=== PATIENT | male | born 1945 | race Caucasian/White ===

== ENCOUNTER → 2016-06-19 | Outpatient (CLI) | payer MEDICARE ==
[2016-06-19 11:44] LABS: ALANINE AMINOTRANSFERASE 27 U/L (21-72); ALBUMIN 4.3 g/dL (3.5-5.0); ALKALINE PHOSPHATASE 64 U/L (38-126); ASPARTATE AMINO TRANSFERASE 24 U/L (17-59); BILIRUBIN,TOTAL 1.9 mg/dL (0.2-1.3); CHOLESTEROL 141.11 mg/dL (0-200); Direct HDL 39 mg/dL (>40); TOTAL PROTEIN 6.5 g/dL (6.3-8.2); TRIGLYCERIDES 96 mg/dL (<150)
[2016-06-19 11:55] LABS: DIRECT LDL 89 mg/dL (<100)
== END ==
LOC: OD 08:59
PROVIDERS: ATTEND Specialist
DX: E78.4 Other hyperlipidemia (principal); I10 Essential (primary) hypertension; I34.0 Nonrheumatic mitral (valve) insufficiency; I36.1 Nonrheumatic tricuspid (valve) insufficiency; R01.1 Cardiac murmur, unspecified; E55.9 Vitamin D deficiency, unspecified; Z79.899 Other long term (current) drug therapy
CPT/HCPCS: 36415; 80061; 80076

== ENCOUNTER → 2016-12-22 | Outpatient (CLI) | payer MEDICARE ==
[2016-12-22 09:47] LABS: ALANINE AMINOTRANSFERASE 30 U/L (21-72); ALBUMIN 3.9 g/dL (3.5-5.0); ALKALINE PHOSPHATASE 71 U/L (38-126); ASPARTATE AMINO TRANSFERASE 25 U/L (17-59); BILIRUBIN,DIRECT 0.3 mg/dL (0.0-0.4); BILIRUBIN,TOTAL 1.3 mg/dL (0.2-1.3); CHOLESTEROL 150.85 mg/dL (0-200); Direct HDL 47 mg/dL (>40); TOTAL PROTEIN 6.4 g/dL (6.3-8.2); TRIGLYCERIDES 81 mg/dL (<150)
[2016-12-22 09:58] LABS: DIRECT LDL 96 mg/dL (<100)
== END ==
LOC: OD 08:13
PROVIDERS: ATTEND Specialist
DX: E78.5 Hyperlipidemia, unspecified (principal); I10 Essential (primary) hypertension; E34.0 Carcinoid syndrome; I36.1 Nonrheumatic tricuspid (valve) insufficiency; E55.9 Vitamin D deficiency, unspecified; R01.1 Cardiac murmur, unspecified; Z79.899 Other long term (current) drug therapy
CPT/HCPCS: 36415; 80061; 80076

== ENCOUNTER → 2017-01-29 | Outpatient (CLI) | payer MEDICARE | LOC: OD 08:41 | PROVIDERS: ATTEND Urology | DX: N40.0 Benign prostatic hyperplasia without lower urinary tract symptoms (principal) | CPT/HCPCS: 36415; 84153 ==

== ENCOUNTER 2017-04-05 09:27 | Day surgery (SDC) | payer MEDICARE ==
--- NOTE | 2017-03-29 16:10 | HISTORY AND PHYSICAL E ---
History and Physical NAME: CALDERON PATEL : 1945 AGE: 71Y ADMITTED: 04/05/2017 ROOM: CHIEF COMPLAINT: Patient presented for flexible sig. He does have history of questioned polyp versus lipoma. Patient did have colonoscopy in 2014 showing diminutive rectal polyps. He did have a small area in the rectum, lipoma versus polyp. Patient is being evaluated with flexible sig. He does have some abnormality in his rectal area. He is being admitted for flexible sig. Patient did have colonoscopy in 2013 showing serrated polyp in the rectum. PHYSICAL EXAMINATION: GENERAL: Alert and oriented. VITAL SIGNS: Stable, blood pressure 110/70, pulse 80, respirations 20, temp is 98. HEENT: Normal. ABDOMEN: Soft. NEUROLOGIC: Exam negative. PAST SURGICAL HISTORY: Appendectomy. Colonoscopy showing a serrated adenoma polyp, rectum. REVIEW OF SYSTEMS: CARDIAC: High cholesterol. FAMILY HISTORY: Father had heart disease. Mom had hip surgery. CONCLUSION: Rectal polyp. PLAN: Flexible sig, admit 04/05/2017. DICTATING PHYSICIAN: KAELYN VELEZ M.D. [id number] PHY#: [id number] ID: [id number] JOB#: [id number] ACCT: [id number] cc: >
[~2017-04-05 09:27] MED LIST: EPINEPHRINE INJ 1 MG/10 ML DISP.SYRIN ONE; FENTANYL CITRATE INJ/PF 100 MCG/2 ML AMPUL ONE; FLUMAZENIL INJ 0.5 MG/5 ML VIAL ONE; GLUCAGON,HUMAN RECOMB 1 MG INJ ONE; GLYCOPYRROLATE INJ 0.4 MG/2 ML VIAL ONE; NALOXONE HCL INJ/PF 0.4 MG/1 ML SDV ONE; ONDANSETRON HCL INJ/PF 4 MG/2 ML SDV ONE
[2017-04-05] MEDS: MIDAZOLAM 2 MG/2 ML INJ ONE ×2 (09:58→10:02)
[2017-04-05 11:11] VITALS: BP 133/86
--- NOTE | 2017-04-05 11:49 | DISCHARGE SUMMARY E ---
Discharge Summary NAME: CALDERON PATEL : 1945 AGE: 71Y ADMITTED: 04/05/2017 DISCHARGED: 04/05/2017 HOSPITAL COURSE: The patient is a 71-year-old male who has a history of rectal polyps, prominent vein, underwent flexible sig today that shows no polyps, prominent veins in the rectum, slightly enlarged prostate, and external hemorrhoids sigmoid diverticulosis. DISCHARGE PLAN: Assurance. Continue present management. Patient to see us in the office in the next few days. Consideration followup colonoscopy 10 years. FINAL DIAGNOSES: 1. External hemorrhoids. 2. Sigmoid diverticulosis. 3. No polyps. DICTATING PHYSICIAN: KAELYN VELEZ M.D. [id number] PHY#: [id number] ID: [id number] JOB#: [id number] ACCT: [id number] cc:KAELYN VELEZ M.D. >
--- NOTE | 2017-04-05 11:53 | OPERATIVE REPORT E ---
Operative Report NAME: CALDERON PATEL : 1945 AGE: 71Y DATE OF SURGERY: 04/05/2017 ROOM: PREOPERATIVE DIAGNOSIS: Flexible sig, history of rectal polyps. OPERATION: Flexible sig. SURGEON: KAELYN VELEZ M.D. ANESTHESIA: Versed 2 and fentanyl 50. TISSUE REMOVED OR ALTERED: None. PROCEDURE: Rectal exam: External hemorrhoids. Rectum shows prominent veins. No evidence of polyps on today's exam. Sigmoid diverticulosis. Descending colon normal. Scope withdrawn descending, sigmoid, all the way to the rectum. CONCLUSION: 1. Flexible sig showing no polyps. 2. External hemorrhoids. 3. Mild diverticulosis. PLAN: Soft diet. Consider followup colonoscopy after 10 years. DICTATING PHYSICIAN: KAELYN VELEZ M.D. [id number] PHY#: [id number] ID: [id number] JOB#: [id number] ACCT: [id number] cc:KAELYN VELEZ M.D. >
== END 2017-04-05 11:15 | disposition home or self-care (01) ==
LOC: END 09:27
PROVIDERS: ATTEND Specialist
PROC: 0DJD8ZZ Inspection of Lower Intestinal Tract, Via Natural or Artificial Opening Endoscopic (ICD-10-PCS; principal; 2017-04-05 10:00)
DX: Z12.11 Encounter for screening for malignant neoplasm of colon (principal); K64.4 Residual hemorrhoidal skin tags; E78.00 Pure hypercholesterolemia, unspecified; K57.30 Diverticulosis of large intestine without perforation or abscess without bleeding
CPT/HCPCS: 45330; J2250; J3010; J2405; J0171; J1610; J2310; J3490

== ENCOUNTER → 2017-06-22 | Outpatient (CLI) | payer MEDICARE ==
[2017-06-22 10:22] LABS: ALANINE AMINOTRANSFERASE 39 U/L (21-72); ALBUMIN 4.1 g/dL (3.5-5.0); ALKALINE PHOSPHATASE 63 U/L (38-126); ASPARTATE AMINO TRANSFERASE 28 U/L (17-59); BILIRUBIN,DIRECT 0.2 mg/dL (0.0-0.4); BILIRUBIN,TOTAL 1.5 mg/dL (0.2-1.3); CHOLESTEROL 129.12 mg/dL (0-200); TOTAL PROTEIN 6.5 g/dL (6.3-8.2); TRIGLYCERIDES 77 mg/dL (<150)
[2017-06-22 10:34] LABS: DIRECT LDL 82 mg/dL (<100)
== END ==
LOC: OD 07:51
PROVIDERS: ATTEND Specialist
DX: E78.4 Other hyperlipidemia (principal); I10 Essential (primary) hypertension; I34.0 Nonrheumatic mitral (valve) insufficiency; I36.1 Nonrheumatic tricuspid (valve) insufficiency; R01.1 Cardiac murmur, unspecified; E55.9 Vitamin D deficiency, unspecified; Z79.899 Other long term (current) drug therapy
CPT/HCPCS: 36415; 80061; 80076

== ENCOUNTER → 2017-12-17 | Outpatient (CLI) | payer MEDICARE ==
[2017-12-17 09:28] LABS: ALANINE AMINOTRANSFERASE 28 U/L (21-72); ALBUMIN 4.2 g/dL (3.5-5.0); ALKALINE PHOSPHATASE 61 U/L (38-126); ASPARTATE AMINO TRANSFERASE 23 U/L (17-59); BILIRUBIN,DIRECT 0.2 mg/dL (0.0-0.4); BILIRUBIN,TOTAL 1.6 mg/dL (0.2-1.3); CHOLESTEROL 148.58 mg/dL (0-200); TOTAL PROTEIN 6.6 g/dL (6.3-8.2); TRIGLYCERIDES 104 mg/dL (<150)
[2017-12-17 09:40] LABS: DIRECT LDL 82 mg/dL (<100)
== END ==
LOC: OD 08:35
PROVIDERS: ATTEND Internal Medicine
DX: E78.4 Other hyperlipidemia (principal); I10 Essential (primary) hypertension; I34.0 Nonrheumatic mitral (valve) insufficiency; I36.1 Nonrheumatic tricuspid (valve) insufficiency; R01.1 Cardiac murmur, unspecified; E55.9 Vitamin D deficiency, unspecified; Z79.899 Other long term (current) drug therapy
CPT/HCPCS: 36415; 80061; 80076

== ENCOUNTER 2018-09-26 06:49 | Day surgery (SDC) | payer MEDICARE ==
[~2018-09-26 06:49] MED LIST changes: -EPINEPHRINE INJ 1 MG/10 ML DISP.SYRIN ONE; -FENTANYL CITRATE INJ/PF 100 MCG/2 ML AMPUL ONE; -FLUMAZENIL INJ 0.5 MG/5 ML VIAL ONE; -GLUCAGON,HUMAN RECOMB 1 MG INJ ONE; -GLYCOPYRROLATE INJ 0.4 MG/2 ML VIAL ONE; +LIDOCAINE 1% INJ-PF (10 MG/ML) 30 ML SDV ONE; -NALOXONE HCL INJ/PF 0.4 MG/1 ML SDV ONE; -ONDANSETRON HCL INJ/PF 4 MG/2 ML SDV ONE; +PROPOFOL INJ 200 MG/20 ML VIAL IV ONE
[2018-09-26] MEDS ORDERED: FENTANYL CITRATE INJ/PF 100 MCG/2 ML AMPUL IV PRN ×3 (07:37)
[2018-09-26] MEDS ORDERED: DIPHENHYDRAMINE HCL 50 MG/ML VIAL IV PRN (07:37)
[2018-09-26] MEDS ORDERED: ONDANSETRON HCL INJ/PF 4 MG/2 ML SDV IV PRN (07:37)
--- NOTE | 2018-09-26 09:06 | Discharge Summary ---
Discharge Summary (SDC) - Discharge Final Diagnosis: Left colonic polyp Date of Surgery: 09/26/18 Discharge Date: 09/26/18 Condition: Good Treatment or Instructions: [facility] [place] [id number] POST ENDOSCOPY DISCHARGE INSTRUCTIONS 1. Diet: Start clear liquids that a regular diet as tolerated. 2. Resume all preoperative medications. All oral anticoagulants and aspirins can be resumed 24 hours after procedure. 3. If a polypectomy was performed some bleeding per rectum may occur. This should stop within 3 days. If not, please contact the office. 4. If you had a colonoscopy you may experience some bloating and delayed return of normal bowel function for several days, your regular bowel movement pattern should resume within a week. 5. Please contact [facility] at to make an appointment with Dr. Valadez for 1 to 3 weeks following procedure. 6. If you have any questions or concerns regarding your care,treatment plan or follow up, please contact our office. 7. Per clinical guidelines we recommend you undergo a repeat colonoscopy in three- to five years. Referrals: MALLIKA HENRIQUEZ MD [Primary Care Provider] - Discharge Diet: Regular Discharge Activity: Activity As Tolerated Home Care Assistance: None Needed Report the Following to Your Physician Immediately: Shortness of Breath, Increase in Pain, Fever over 101 Degrees
--- NOTE | 2018-09-26 09:09 | Operative Report ---
Operative Report DATE OF SURGERY: 09/26/18 PREOPERATIVE DIAGNOSIS: Abdominal pain; remote history of colon polyp POSTOPERATIVE DIAGNOSIS: Same with colon polyp left colon OPERATION: 1. Total colonoscopy to cecum with photodocumentation. 2. Left colon polypectomy with cold forceps device SURGEON: JW MELTON ANESTHESIA: LMAC TISSUE REMOVED OR ALTERED: Polyp COMPLICATIONS: None ESTIMATED BLOOD LOSS: Scant INTRAOPERATIVE FINDINGS: See below PROCEDURE: Obtaining informed consent the patient was taken from the preoperative holding area to the main endoscopy suite where monitoring devices were attached to the patient. Plan and surgical timeout were conducted The patient was placed in the left lateral decubitus position with knees to chest. A perianal examination was performed. There was no visible or palpable anorectal pathology. Sphincter tone was felt to be normal. The flexible adult colonoscope was advanced through the anal rectal canal, all the way to the cecum. Visualization of the cecum was achieved and the ileocecal valve, the appendiceal orifice and transillumination of the anterior abdominal wall. This was an very good study on a reasonably well-prepped bowel. The colonoscope was withdrawn slowly and methodically checked and the mucosa carefully. There was no evidence of tumor, stricture, bleeding; in the descending colon approximately 50 cm from the anal verge was a small polyp, likely hyperplastic which was removed with the cold forceps device, sent to pathology and labeled same. Bleeding at the polypectomy site was minimal. There was no evidence of diverticuloses. The scope was slowly withdrawn through the anal rectal canal. Complete visualization of the rectum was achieved with photodocumentation. The scope was withdrawn to the patient's anus. The patient tolerated the procedure well and was taken to the recovery area in stable condition. Per surveillance guidelines, patient be an appropriate candidate for follow-up colonoscopy in 3 to 5 years pending results of polypectomy path report.
[2018-09-26 11:35] VITALS: BP 161/84
== END 2018-09-26 10:05 | disposition home or self-care (01) ==
LOC: END 06:49 → OROUT 10:05
PROVIDERS: ATTEND Surgery
DX: D12.4 Benign neoplasm of descending colon (principal); Z86.010 Personal history of colon polyps; I10 Essential (primary) hypertension; I25.10 Atherosclerotic heart disease of native coronary artery without angina pectoris; N40.0 Benign prostatic hyperplasia without lower urinary tract symptoms; Z88.5 Allergy status to narcotic agent; Z85.828 Personal history of other malignant neoplasm of skin
CPT/HCPCS: 45385; 88305 ×2; J3490; J2704; 811

== ENCOUNTER → 2018-11-18 | Outpatient (CLI) | payer MEDICARE ==
[2018-11-18 09:01] LABS: ALANINE AMINOTRANSFERASE 25 U/L (21-72); ALBUMIN 4.1 g/dL (3.5-5.0); ALKALINE PHOSPHATASE 65 U/L (38-126); ASPARTATE AMINO TRANSFERASE 22 U/L (17-59); BILIRUBIN,DIRECT 0.3 mg/dL (0.0-0.4); BILIRUBIN,TOTAL 1.7 mg/dL (0.2-1.3); TOTAL PROTEIN 6.1 g/dL (6.3-8.2); TRIGLYCERIDES 88 mg/dL (<150)
[2018-11-18 09:12] LABS: DIRECT LDL 80 mg/dL (<100)
== END ==
LOC: OD 07:27
PROVIDERS: ATTEND Specialist
DX: E78.5 Hyperlipidemia, unspecified (principal); I10 Essential (primary) hypertension; I34.0 Nonrheumatic mitral (valve) insufficiency; I36.0 Nonrheumatic tricuspid (valve) stenosis; R01.1 Cardiac murmur, unspecified; E55.9 Vitamin D deficiency, unspecified; I36.1 Nonrheumatic tricuspid (valve) insufficiency; Z85.828 Personal history of other malignant neoplasm of skin
CPT/HCPCS: 36415; 80061; 80076